=== PATIENT | male | born 1990 | race Caucasian/White ===

== ENCOUNTER 2022-05-28 12:23 | Emergency (ER) | payer BC ==
[2022-05-28] MEDS ORDERED: Sodium Chloride 0.9% 10 ML Syringe FLUSH PRN (12:26)
[2022-05-28] MEDS: Sodium Chloride 0.9% 1,000 ML IV ONE (13:01)
[2022-05-28 13:30] LABS: ANION GAP 6.2 meq/L (7-15)
== END 2022-05-28 14:30 | disposition home or self-care (01) ==
LOC: LL.ED 12:23
DX: R56.9 Unspecified convulsions (principal)
CPT/HCPCS: 36415; 70450; 72125; 80053; 80177; 81003; 83605; 83735; 85025; 93005; 93010; 96360; 99284; 99284-25; J7030